=== PATIENT | female | born 1965 | race Caucasian/White ===

== ENCOUNTER 2023-05-18 10:10 | Day surgery (SDC) | payer OTHER ==
[~2023-05-18] VITALS: Ht 165.1 cm; Wt 131.5 kg
[2023-05-18] MEDS ORDERED: fentaNYL citrate 0.05 MG/ML VIAL ONE (12:27)
[2023-05-18] MEDS ORDERED: MIDAZOLAM 5 MG/5 ML VIAL ONE (12:27)
[2023-05-18] MEDS: fentaNYL citrate 0.05 MG/ML VIAL IVP ONE (12:35)
[2023-05-18] MEDS ORDERED: LABETALOL 100 MG/20 ML VIAL ONE (12:45)
[2023-05-18] MEDS: LABETALOL 20 MG/4 ML VIAL IVP ONE (12:46)
== END 2023-05-18 14:30 | disposition home or self-care (01) ==
LOC: MDS 10:10 → MMU 10:23 → MDS 14:30
PROVIDERS: ATTEND Internal Medicine Gastroenterology
DX: R19.5 Other fecal abnormalities (principal); R10.11 Right upper quadrant pain; K62.6 Ulcer of anus and rectum; K63.5 Polyp of colon; I10 Essential (primary) hypertension; Z90.710 Acquired absence of both cervix and uterus; Z98.891 History of uterine scar from previous surgery; Z79.899 Other long term (current) drug therapy; Z98.890 Other specified postprocedural states
CPT/HCPCS: 45380; 88304; J3010; J3490; J2250